=== PATIENT | male | born 1945 | race Asian ===

== ENCOUNTER 2021-10-19 09:17 | Outpatient (CLI) | payer BC, MEDICARE | END 2021-10-19 23:59 | disposition home or self-care (01) | LOC: RAD 09:17 | PROVIDERS: ATTEND Internal Medicine | DX: T81.82XA Emphysema (subcutaneous) resulting from a procedure, initial encounter (principal); J90 Pleural effusion, not elsewhere classified; R91.8 Other nonspecific abnormal finding of lung field; Z98.890 Other specified postprocedural states | CPT/HCPCS: 71046 ==

== ENCOUNTER 2021-10-27 08:17 | Outpatient (CLI) | payer BC | END 2021-10-27 23:59 | disposition home or self-care (01) | LOC: RAD 08:17 | PROVIDERS: ATTEND Physician Assistant | DX: J90 Pleural effusion, not elsewhere classified (principal); I70.0 Atherosclerosis of aorta; J98.11 Atelectasis; J43.2 Centrilobular emphysema; K82.8 Other specified diseases of gallbladder; M40.294 Other kyphosis, thoracic region; M47.814 Spondylosis without myelopathy or radiculopathy, thoracic region; K76.89 Other specified diseases of liver; Z95.1 Presence of aortocoronary bypass graft | CPT/HCPCS: 71250 ==